=== PATIENT | male | born 1960 ===

== ENCOUNTER 2020-06-19 10:41 | Observation (INO) ==
[~2020-06-19 10:41] MED LIST: Buffered Lidocaine 1% SYRIN 1 ml INTRADERM ONE; Dexamethasone IV 4 MG/ML VIAL 1 ml VIAL IV SLOW PU ONE; Famotidine IV 10 MG/ML 2 ml VIAL (20 mg) IV ONE; Lactated Ringers 1000 ml BAG 1,000 ML IV SCH; ROPIVACAINE 5 MG/ML 30 ML BTL (0.5%) ONE
[2020-06-19] MEDS ORDERED: Ondansetron 4 mg VIAL 2 MG/ML 2 ml VIAL ONE (10:43)
[2020-06-19] MEDS ORDERED: Midazolam 5 mg/5 ml VIAL 1 mg/ml 5 ml VIAL (5 mg) ONE (10:45)
[2020-06-19] MEDS ORDERED: fentaNYL 100 mcg/2 ml 50 MCG/ML VIAL ONE ×3 (10:45→17:32)
[2020-06-19] MEDS ORDERED: ceFAZolin 1 GM ADVAN 1 GM ADDV.VIAL IVPB ONE (11:13)
[2020-06-19] MEDS ORDERED: ceFAZolin 2 GM PREMIX 2 GM/50 ML BAG ONE (11:13)
[2020-06-19] MEDS ORDERED: Famotidine IV 10 MG/ML 2 ml VIAL (20 mg) ONE (11:13)
[2020-06-19] MEDS ORDERED: Dexamethasone IV 4 MG/ML VIAL 1 ml VIAL ONE (11:13)
[2020-06-19 12:34] LABS: INR 1.09 (0.82-1.09)
[2020-06-19] MEDS ORDERED: Naloxone 0.4 mg VIAL 0.4 mg/ml 1 ml VIAL IV PRN (12:39)
[2020-06-19] MEDS ORDERED: HYDROcodone/ACETAMIN 5/325 mg TAB PO PRN (12:39)
[2020-06-19] MEDS ORDERED: Morphine 4 MG/ML VIAL (1 ml) IV PRN (12:39)
[2020-06-19] MEDS ORDERED: DiMENhydriNATE IV 50 mg/ml 1 ml VIAL IV PUSH PRN (12:39)
[2020-06-19] MEDS ORDERED: oxyCODONE/Acetamin 5/325 mg TAB PO PRN (12:39)
[2020-06-19] MEDS ORDERED: Bupivacaine 0.5% SDV PF 30ML VIAL ONE (13:22)
[2020-06-19] MEDS ORDERED: EPHEDrine (Pressors) 50 MG/ML VIAL ONE (14:25)
[2020-06-19] MEDS ORDERED: Phenylephrine 40 mcg/mL 10mL (400mcg) SYRINGE ONE (14:25)
[2020-06-19] MEDS ORDERED: Propofol 10 MG/ML 20 ML BTL ONE ×4 (14:25→15:18)
[2020-06-19] MEDS ORDERED: Ondansetron ODT 4 mg TAB 4 MG TAB PO PRN (14:36)
[2020-06-19] MEDS ORDERED: diPHENhydraMINE IV 50 MG/ML 1 ml VIAL (BENADRYL) IV PRN (14:36)
[2020-06-19] MEDS ORDERED: Ondansetron 4 mg VIAL 2 MG/ML 2 ml VIAL IV PRN (14:36)
[2020-06-19] MEDS ORDERED: diPHENhydraMINE 25 mg TAB PO PRN (14:36)
[2020-06-19] MEDS ORDERED: Magnesium Hydroxide LIQ 30 ML UDC PO PRN (14:36)
[2020-06-19] MEDS ORDERED: Lactulose 30 ml UDC PO PRN (14:36)
[2020-06-19] MEDS ORDERED: Morphine 2 MG/ML SYRINGE IV PRN (14:36)
[2020-06-19] MEDS ORDERED: Ketamine HCL 50 mg/ml 10 ml VIAL (500 MG) ONE (15:29)
[2020-06-19] MEDS ORDERED: Acetaminophen IV 1 GM/100ML 100 ML ONE (16:02)
[2020-06-19] MEDS ORDERED: Propofol 10 mg/ml 100 ML BTL 0 ML ONE (16:08)
[2020-06-19] MEDS ORDERED: HYDROmorphone 1 MG/1 ML SYRINGE ONE (16:23)
[2020-06-19] MEDS ORDERED: Phenylephrine IV 10 MG/ML 1 ml VIAL ONE (16:37)
[2020-06-19] MEDS ORDERED: oxyCODONE/Acetamin 5/325 mg TAB ONE (17:32)
[2020-06-19] MEDS: fentaNYL 100 mcg/2 ml 50 MCG/ML VIAL IV PRN ×2 (17:35→17:45)
[2020-06-19] MEDS: Lactated Ringers 1000 ml BAG 1,000 ML IV SCH (18:32)
[2020-06-19] MEDS: Magnesium Hydroxide LIQ 30 ML UDC PO SCH (20:35)
[2020-06-19] MEDS: ceFAZolin 1 GM ADVAN 1 GM in NS 0.9% 50 ML 50 ML IVPB SCH (22:19)
[2020-06-20] MEDS: Lactated Ringers 1000 ml BAG 1,000 ML IV SCH (04:58)
[2020-06-20 04:59] LABS: Hematocrit 35 % (42-52); Hemoglobin 11.6 g/dL (14.0-18.0); Platelet Count 308 10^3/uL (150-450)
[2020-06-20] MEDS: ceFAZolin 1 GM ADVAN 1 GM in NS 0.9% 50 ML 50 ML IVPB SCH ×2 (05:08→14:12)
[2020-06-20] MEDS: oxyCODONE/Acetamin 5/325 mg TAB PO PRN ×2 (05:09→11:13)
[2020-06-20 05:14] LABS: BUN/Creatinine Ratio 12.9 (8-20); Calcium 9.2 mg/dL (8.6-10.3); EGFR African American 138.7 (>60); EGFR Non-African American 114.6 (>60); Potassium 4.5 mmol/L (3.5-5.0)
[2020-06-20] MEDS: Magnesium Hydroxide LIQ 30 ML UDC PO SCH (08:49)
[2020-06-20] MEDS ORDERED: Vitamin THERAPEUTIC TAB PO SCH (09:00)
[2020-06-20 11:34] VITALS: BP 152/69
== END 2020-06-20 16:13 | disposition home or self-care (01) ==
LOC: SSU 10:41 → OR 10:41 → EDSTATUS 15:45
PROVIDERS: ADMIT Orthopaedic Surgery Adult Reconstructive Orthopaedic Surgery; ATTEND Orthopaedic Surgery Adult Reconstructive Orthopaedic Surgery